=== PATIENT | male | born 1940 | race Caucasian/White ===

== ENCOUNTER 2017-01-20 12:38 | Day surgery (SDC) | payer OTHER ==
--- NOTE | ~2017-01-20 | OP ---
Record Of Operation [facility] [address] [place]. [address] NAME: SUKHDEV WAYNE : 38 STATUS : REG [facility] [place] PAT#: [id number] AGE: 76 ADM/REG DATE : 01/20/17 MR#: [id number] REPORT SERV DATE: 01/20/17 DICTATED BY: BELINDA NASSAR DATE: 01/20/17 REPORT STATUS : Draft TRANSCRIBED BY: MODL DATE: 01/20/17 DATE OF PROCEDURE: GI Procedure Note PROCEDURE: PEG tube exchange. INDICATION: Malfunctioning PEG tube. HISTORY: A 76-year-old, with dysphagia and has a balloon PEG in place. had called last night with complaints of being unable to flush the PEG. He has not been able to get his medications or tube feedings. PROCEDURE IN DETAIL: The patient was laid in the supine position. PEG tube was evaluated and it appeared that the balloon portion of the PEG was in the tract. We deflated the balloon and pulled the PEG tube out. There was noted some blood within the PEG tube, and I assume this is probably due to irritation from the tract. A 22-Russian balloon replacement PEG was placed. Aspirations were performed and appeared to have gastric contents without any blood. We were able to flush the PEG without difficulty. PEG was placed approximately 4.5 cm at the bumper site. The patient appears to have tolerated the procedure. We then inflated the balloon portion of the PEG with 10 mL of saline. We were able to turn the PEG without difficulty. IMPRESSION: Status post PEG exchange with the old balloon PEG was in the tract. It was replaced with a 22-Russian balloon replacement PEG. RECOMMENDATION: We are going to send the patient for a Gastrografin study to confirm placement of PEG, and if placement is satisfactory, he will be discharged home. I will have him follow up in the office in a couple weeks for PEG reassessment and check. YANY/SALVADOR Belinda Nassar M.D. / [id number] CC: Jade Newton M.D.
[~2017-01-20 12:38] MED LIST: ASA5GR PO; ASAB PO; ATV1 PO; BYSTOLIC5 MG PO; CYANO1000T PO; FOLIC ACID PO; FOLIC ACID400 MC1 PO; FOLIC PO; HALF81 PO; IMDUR30 PO; NAMENDA10 MG PO; PLAVIX PO; PRAVACHOL80 MG PO; PRIN2.5 PO; PROAM25 PO; PROTONIX PO; RISP2 PO; RISP3 PO; SYMM100 PO; VITAMIN D1000 UNI1 PO; ZESTRIL2.5 MG PO; ZOL100 PO
== END 2017-01-20 23:59 | disposition home health service (06) ==
LOC: DMU 12:38
PROVIDERS: Internal Medicine Gastroenterology
PROC: 0D20XUZ Change Feeding Device in Upper Intestinal Tract, External Approach (ICD-10-PCS; principal; 2017-01-20 13:00)
DX: K94.23 Gastrostomy malfunction (principal); Z79.82 Long term (current) use of aspirin; Z79.899 Other long term (current) drug therapy
CPT/HCPCS: 49465